=== PATIENT | male | born 1955 | race Caucasian/White ===

== ENCOUNTER 2020-01-14 07:25 | Outpatient (CLI) | payer MEDICARE, OTHER ==
[2020-01-14 14:08] LABS: #Eosinphils 0.2 thou/uL (0.0-0.7); #Lymphocytes 2.2 thou/uL (1.20-3.40); #Monocytes 0.3 thou/uL (0.11-0.59); #Neutrophils 2.3 thou/uL (1.40-6.50); %Basophils 0.9 % (0.0-1.0); %Eosinophils 4.6 % (0.0-10.0); %Lymphocytes 42.7 % (21.0-51.0); %Monocytes 6.8 % (0.0-10.0); Hemoglobin 14.3 g/dL (14.0-18.0); Mean Corpuscular HGB CONC 34.2 g/dL (32.0-36.0); Mean Corpuscular Hemoglobin 34.7 pg (27.0-31.0); Mean Platelet Volume 7.9 fL (7.4-10.4); Platelet Count 137 thou/uL (130-400); RBC Distribution Width 11.8 % (11.5-14.5); Red Blood Cell (RBC) Count 4.12 mill/uL (4.70-6.10); White Blood Cell (WBC) Count 5.1 thou/uL (4.8-10.8)
[2020-01-14 15:12] LABS: Anion Gap 16 mmol/L (10-20); BUN (Urea Nitrogen) 13 mg/dL (8.4-25.7); Calc. Creatinine Clearance 0 mL/min (70-130); Calcium 9.1 mg/dL (7.8-10.44); Carbon Dioxide 24 mmol/L (23-31); Chloride 105 mmol/L (98-107); Estimated GFR-MDRD 77; Glucose 75 mg/dL (80-115); Sodium 141 mmol/L (136-145)
--- NOTE | 2020-01-14 16:47 | EKG ---
Test Reason : SURGERY Blood Pressure : / mmHG Vent. Rate : 061 BPM Atrial Rate : 061 BPM P-R Int : 172 ms QRS Dur : 094 ms QT Int : 442 ms P-R-T Axes : 040 -08 023 degrees QTc Int : 444 ms Normal sinus rhythm Normal ECG No previous ECGs available Confirmed by DR. Audelia COHEN ([id number]) on 01/14/2020 4:47:15 PM Referred By: EVAN Confirmed By:DR. Audelia COHEN
[2020-01-15 14:01] LABS: SARS-CoV-2 MS2 Positive; SARS-CoV-2 N Gene Negative; SARS-CoV-2 S Gene Negative; SARS-CoV-2 by NAA Not Detected (NotDetected); SARS-CoV-2 orf1ab Negative
== END 2020-01-14 07:26 | disposition home or self-care (01) ==
LOC: LABBT 07:25
PROVIDERS: ATTEND Surgery
DX: Z01.818 Encounter for other preprocedural examination (principal); K40.90 Unilateral inguinal hernia, without obstruction or gangrene, not specified as recurrent; Z20.828 Contact with and (suspected) exposure to other viral communicable diseases
CPT/HCPCS: 80048; 85025; 93005; U0003; 87635; 93010

== ENCOUNTER 2020-01-19 05:39 | Day surgery (SDC) | payer MEDICARE ==
[2020-01-14 12:40] VITALS: BMI 24.3
[2020-01-19] MEDS ORDERED: Lidocaine 1% w/Epinephrine 1:100K 20 ML VIAL ONE (06:48)
[2020-01-19] MEDS ORDERED: Bupivacaine 0.25% HCL 30 ML VIAL ONE (06:48)
[2020-01-19] MEDS ORDERED: SUGAMMADEX SODIUM 200 MG/2 ML VIAL ONE (06:56)
[2020-01-19] MEDS ORDERED: Fentanyl 250 MCG/5 ML VIAL ONE (06:56)
[2020-01-19] MEDS ORDERED: Fentanyl 100 MCG/2 ML VIAL ONE (08:52)
[2020-01-19] MEDS ORDERED: HYDROcodone/Acetaminophen 5/325 mg Tablet ONE (09:49)
[2020-01-19] MEDS ORDERED: Dexamethasone 20 MG/5 ML VIAL ONE (10:37)
[2020-01-19] MEDS ORDERED: Rocuronium Bromide 10 MG/ML (10ML VIAL) ONE (10:37)
[2020-01-19] MEDS ORDERED: Ondansetron PF 4 MG/2 ML Vial ONE (10:37)
[2020-01-19] MEDS ORDERED: Lidocaine 1% PF 5 ML VIAL ONE (10:37)
[2020-01-19] MEDS ORDERED: Ketorolac Tromethamine 30 MG/ML VIAL ONE (10:37)
[2020-01-19] MEDS ORDERED: Glycopyrrolate 0.2 MG/ML 5 ML SYRINGE ONE (10:37)
[2020-01-19] MEDS ORDERED: PROPOFOL 200 MG/20 ML VIAL ONE (10:37)
--- NOTE | 2020-01-19 18:51 | OP ---
DATE OF PROCEDURE: 01/19/2020 PREOPERATIVE DIAGNOSIS: Right inguinal hernia. POSTOPERATIVE DIAGNOSIS: Right inguinal hernia. PROCEDURE PERFORMED: Da Samuel laparoscopic right inguinal hernia repair with mesh, Bard 3DMax large. ANESTHESIA: General. ESTIMATED BLOOD LOSS: Minimal. COMPLICATIONS: None. SPECIMENS: None. FINDINGS: Right inguinal hernia. DESCRIPTION OF PROCEDURE: The patient was taken to the operating room and laid supine on the operating room table. After general anesthetic was obtained, a Gupta was placed. The abdomen was shaved, prepped, and draped in a sterile fashion. A curved incision was made above the umbilicus. Cautery was used to dissect down to and score the fascia. Abdominal cavity was entered bluntly using a Griselda clamp. An 11-mm balloon trocar was placed. High-flow pneumoperitoneum was obtained. Left and right abdominal 8-mm robot trocars were placed. All ports were docked to the robot. Surgeon gone to the console. The peritoneum was opened in the right lower quadrant. The preperitoneal space was bluntly dissected to pubic tubercle medially, anterior superior iliac crest laterally. Shelving edge of the ligament fully exposed. There was a large indirect hernia sac, so large, it went all the way to the scrotum, so it was transected and dissected off the other cord structures. This left a defect in the peritoneum below the above-mentioned opening. 3DMax large mesh brought into the sterile field. The M-labeled medial aspect was placed over pubic tubercle medially. The mesh was laid out lateral to cover direct, indirect, and femoral areas. The mesh was sewn via 2-0 Vicryl to pubic tubercle medially and to the posterior fascia laterally. The peritoneum was reapproximated using running 3-0 Stratafix. The 3-0 Stratafix was also used to close the peritoneal defect from the hernia sac. All needles were removed from the abdomen and accounted for. All port sites were infiltrated using local anesthetic. All ports were removed under camera visualization. Pneumoperitoneum was let down. PDS was used to close the fascial defect above the umbilicus. All incisions were irrigated and closed using 4-0 Monocryl and Dermabond. The patient was sent to Recovery in stable condition. All instrument counts, needle counts, and lap counts were correct. Job ID: [id number]
== END 2020-01-19 11:23 | disposition home or self-care (01) ==
LOC: SDC 05:39
PROVIDERS: ATTEND Surgery
PROC: 0YU54JZ Supplement Right Inguinal Region with Synthetic Substitute, Percutaneous Endoscopic Approach (ICD-10-PCS; principal; 2020-01-19)
DX: K40.90 Unilateral inguinal hernia, without obstruction or gangrene, not specified as recurrent (principal); E78.5 Hyperlipidemia, unspecified; F17.200 Nicotine dependence, unspecified, uncomplicated; Z79.899 Other long term (current) drug therapy
CPT/HCPCS: C1781; J0690; J1100; J1885; J2405; J2704; J3010; S0020